=== PATIENT | female | born 1975 | race African-American/Black ===

== ENCOUNTER → 2017-02-08 | Outpatient (CLI) | payer BC ==
--- NOTE | 2017-02-08 08:10 | DIAGNOSTIC IMAGING REPORT ---
CERVICAL WITHOUT CONTRAST CLINICAL HISTORY: 41 years-old Female presenting with R76.8 Positive anti-CCP testM54.2 Neck pain, [id number], concern for a rheumatoid arthritis, neck pain for years, now acute. TECHNIQUE: Multisequence, multiplanar MR imaging of the cervical spine was performed without the use of intravenous contrast. IV contrast: None. COMPARISON: None. FINDINGS: Localizer images: Unremarkable. Normal cervical lordosis. Vertebral bodies maintain normal height, alignment, and bone marrow signal intensity. Intervertebral disc spaces preserved. No evidence of inflammatory change, including at the atlantoaxial articulation. No neural foraminal or spinal canal narrowing. Small perineural cyst suggested on the right at C5-6. Spinal cord maintains normal signal intensity and morphology. Craniocervical junction normal. No paraspinal edema. Paraspinal musculature normal. IMPRESSION: Essentially normal cervical spine. Electronically signed by: Papi Jones M.D. 02/08/2017 8:09 AM Dictated Date/Time: 02/08/2017 7:27 AM
--- NOTE | 2017-02-08 08:26 | DIAGNOSTIC IMAGING REPORT ---
C-SPINE ROUTINE 4 OR 5 VIEWS CLINICAL HISTORY: Positive anti-CCP test. Neck pain, acute. COMPARISON STUDY: MRI of the cervical spine February 08, 2017. FINDINGS: Alignment of the cervical spine is anatomic. Vertebral body heights are maintained. No fracture or osseous lesion is present. Disc spaces are preserved. There is mild osteophytosis C5-C6. IMPRESSION: 1. No significant abnormality of the cervical spine. 2. Minimal osteophytosis at C5-C6 with preserved disc spaces. Electronically signed by: Darnell Jefferson M.D. 02/08/2017 8:25 AM Dictated Date/Time: 02/08/2017 8:22 AM
== END | disposition home or self-care (01) ==
LOC: C.MRI 06:24
PROVIDERS: ATTEND Internal Medicine Rheumatology
DX: M35.7 Hypermobility syndrome (principal); M54.2 Cervicalgia; R76.8 Other specified abnormal immunological findings in serum